=== PATIENT | female | born 1965 | race Caucasian/White ===

== ENCOUNTER → 2018-11-07 | Outpatient (CLI) | payer OTHER ==
[2018-11-07 08:43] LABS: BASOPHIL % 0.4 % (0-2); PLATELET COUNT 293 x10^3mcL (130-400)
[2018-11-07 09:06] LABS: ALBUMIN 3.6 g/dL (3.4-5.0); ALKALINE PHOSPHATASE 47 U/L (46-116); ALT/SGPT 21 U/L (14-59); AST/SGOT 14 U/L (15-37); BILIRUBIN TOTAL 0.15 mg/dL (0.20-1.00); CALCIUM 8.6 mg/dL (8.5-10.1); CARBON DIOXIDE 27.8 mmol/L (21-32); CHLORIDE SERUM 106 mmol/L (98-107); CREATININE SERUM 0.7 mg/dL (0.6-1.0); FREE T4 0.69 ng/dL (0.76-1.46); GFR1 > 60 mL/min; GLUCOSE SERUM 99 mg/dL (74-106); HDL CHOLESTEROL 55 mg/dL (40-60); SODIUM SERUM 140 mmol/L (136-145); TOTAL PROTEIN, SERUM 7.3 g/dL (6.4-8.2); TRIGLYCERIDES 147 mg/dL (<150)
[2018-11-07 09:08] LABS: CHOLESTEROL 224 mg/dL (<200); CHOLESTEROL/HDL RATIO 4.1
== END | disposition home or self-care (01) ==
LOC: MA 08:05
PROC: BH02ZZZ Plain Radiography of Bilateral Breasts (ICD-10-PCS; principal; 2018-11-07)
DX: Z00.00 Encounter for general adult medical examination without abnormal findings (principal); Z90.89 Acquired absence of other organs; Z12.31 Encounter for screening mammogram for malignant neoplasm of breast
CPT/HCPCS: 77067; 84439